=== PATIENT | male | born 1955 | race African-American/Black ===

== ENCOUNTER 2021-02-01 12:18 | Outpatient (CLI) | payer MEDICARE, MEDICAID | END 2021-02-01 12:19 | disposition home or self-care (01) | LOC: CSHCT 12:18 | PROVIDERS: ATTEND Family Medicine | DX: Z12.2 Encounter for screening for malignant neoplasm of respiratory organs (principal); F17.200 Nicotine dependence, unspecified, uncomplicated; J43.2 Centrilobular emphysema; I25.10 Atherosclerotic heart disease of native coronary artery without angina pectoris; I25.84 Coronary atherosclerosis due to calcified coronary lesion | CPT/HCPCS: 71271 ==

== ENCOUNTER 2021-10-07 13:00 | Emergency (ER) | payer OTHER, MEDICARE ==
[~2021-10-07 13:00] MED LIST: Iopamidol 370 76% 100 ML VIAL ONE
[2021-10-07] MEDS ORDERED: Aspirin Chewable 81 MG TAB ONE (13:33)
[2021-10-07] MEDS ORDERED: Albuterol Sulfate 2.5 mg/3 ml Neb ONE ×2 (13:34→15:40)
[2021-10-07] MEDS ORDERED: methylPREDNISolone Sod Succ/PF 125 MG/2 ML VIAL ONE (13:34)
[2021-10-07 13:52] LABS: #Monocytes 0.2 10x3/uL (0.0-1.1); #Neutrophils 12.8 10x3/uL (1.5-8.4); %Lymphocytes 2.7 % (18.0-47.0); %Monocytes 1.6 % (0.0-10.0); %Neutrophils 94.8 % (40.0-75.0); Hemoglobin 7.3 g/dL (13.5-17.5); Mean Corpuscular HGB CONC 28.9 g/dL (32.0-36.0); Mean Corpuscular Volume 72.7 fl (81.2-95.1); Mean Platelet Volume 9.8 fl (7.4-10.4); Platelet Count 286 10x3/uL (150-450); Red Blood Cell (RBC) Count 3.48 10x6/uL (4.32-5.72); White Blood Cell (WBC) Count 13.5 10x3/uL (3.5-10.5)
[2021-10-07 14:07] LABS: ALT (SGPT) 15 U/L (8-55); AST (SGOT) 20 U/L (5-34); Albumin 3.8 g/dL (3.4-4.8); Alkaline Phosphatase 96 U/L (40-110); Anion Gap 14 mmol/L (10-20); BUN (Urea Nitrogen) 10 mg/dL (8.4-25.7); Bilirubin, Total 0.3 mg/dL (0.2-1.2); Calc. Creatinine Clearance 0 mL/min (70-130); Calcium 8.9 mg/dL (7.8-10.44); Carbon Dioxide 22 mmol/L (23-31); Chloride 100 mmol/L (98-107); Estimated GFR 95; Globulin 3.2 g/dL (2.4-3.5); Glucose 316 mg/dL (80-115); Potassium 4.4 mmol/L (3.5-5.1); Sodium 132 mmol/L (136-145)
[2021-10-07 15:49] LABS: Anisocytosis MODERATE=16-30 cells (100X) (0-5/hpf); Microcytosis MODERATE=15-30 cells (100X) (0-5/hpf); Poikilocytosis SLIGHT = 6-15 cells (100X) (0-5/hpf)
[2021-10-07 15:50] LABS: Elliptocytes SLIGHT = 2-5 cells (100X) (0-1/hpf); Hypochromia MODERATE=16-30 cells (100X) (0-5/hpf)
[2021-10-07 15:52] LABS: Tear Drops SLIGHT = 2-5 cells (100X) (0-1/hpf)
[2021-10-07 15:53] LABS: Platelet Morphology Comment Appears Adequate
== END 2021-10-07 16:55 | disposition home or self-care (01) ==
LOC: CSHERS 13:00
DX: J44.1 Chronic obstructive pulmonary disease with (acute) exacerbation (principal); D64.9 Anemia, unspecified; J44.9 Chronic obstructive pulmonary disease, unspecified; E11.9 Type 2 diabetes mellitus without complications; I10 Essential (primary) hypertension; F17.210 Nicotine dependence, cigarettes, uncomplicated; Z79.899 Other long term (current) drug therapy
CPT/HCPCS: 36415; 71045; 71275; 80053; 83880; 84484; 85025; 86850; 86900; 86901; 93005; 94640; 96374; J2930; J7611; J7620; Q9967